=== PATIENT | male | born 1955 | race Caucasian/White ===

== ENCOUNTER 2016-11-10 15:24 | Outpatient (CLI) | payer OTHER ==
[~2016-11-10 15:24] MED LIST: BENADRYL25 MG PO; LISINOPRIL10 MG PO; METHOCARBAMOL750 MG PO; MIRAPEX0.125 MG PO; NEURONTIN300 MG PO; NORCO1 TA1 PO; PROAIR HFA IN; TUDORZA PR400 MG/ACT IN
--- NOTE | 2016-11-10 15:53 | DIAGNOSTIC IMAGING REPORT ---
PROCEDURE: XR CHEST 2 VIEW INDICATION: HYPONATREMIA, COPD TECHNIQUE: PA and lateral views. COMPARISON: Chest 09/29/2015 FINDINGS: Normal cardiomediastinal contour. No central vascular congestion. Moderately hyperinflated lungs with pleural tethering laterally. No consolidation, pleural effusion, or pneumothorax. IMPRESSION: 1. Moderate emphysematous changes. 2. No acute consolidation.
== END 2016-11-10 23:00 ==
LOC: XR SRH 15:24
DX: J43.9 Emphysema, unspecified (principal); E87.1 Hypo-osmolality and hyponatremia